=== PATIENT | male | born 1980 | race Caucasian/White ===

== ENCOUNTER 2017-01-09 13:15 | Inpatient (IN) | payer BC ==
[2017-01-09] VITALS (9 sets, daily range): BP systolic 114–131; BP diastolic 59–85; PULSE 61–99; TEMP 97.8–98.5
[~2017-01-09] VITALS: Ht 180.3 cm; Wt 93.3 kg
[2017-01-09] MEDS ORDERED: PAXIL 20MG20 MG PO (13:19)
[2017-01-09] MEDS ORDERED: KLONOPIN 0.5MG0.5 MG PO (13:19)
[2017-01-09] MEDS ORDERED: AMBIEN 10MG10 MG PO (13:19)
[2017-01-09] MEDS ORDERED: LEVAQUIN 5500 MG/TA1 PO (13:19)
[2017-01-09] MEDS ORDERED: BACTRIM DS 8001 TAB PO (13:20)
[2017-01-09 14:33] LABS: BASO # 0.1 (0.0-0.2); BASO % 0.6 % (0.0-2.0); EOS # 0.2 (0.0-0.7); EOS % 1.3 % (0-4.0); GRAN # 11.9 (1.4-6.5); GRAN % 79.9 % (42.2-75.2); HEMATOCRIT 42.7 % (42.0-52.0); HEMOGLOBIN 14.5 g/dl (13.5-18.0); LYMPH # 1.5 (1.2-3.4); MEAN CELL VOLUME 90 fl (80.0-100.0); MEAN CORPUSCULAR HEMOGLOBIN 30 pg (27.0-31.0); MEAN CORPUSCULAR HGB CONC 34 g/dl (33.0-37.0); MEAN PLATELET VOLUME 9.4 fl (7.4-10.4); MONO # 1.1 (0.1-0.6); MONO % 7.6 % (1.7-9.3); PLATELET COUNT 272 K/mm3 (130-400); RED BLOOD COUNT 4.77 M/mm3 (4.20-5.60); REDCELL DISTRIBUTION WIDTH-CV 11.7 % (11.5-14.5)
[2017-01-09 14:43] LABS: ADJUSTED CALCIUM 8.7 mg/dL (8.4-10.2); BILIRUBIN,TOTAL 0.8 mg/dL (0.0-1.0); C-REACTIVE PROTEIN 6.9 mg/dL (0.0-0.9); CALCIUM 8.7 mg/dL (8.4-10.2); CREATININE, serum 0.95 mg/dL (0.66-1.25); POTASSIUM 4.4 mmol/L (3.4-5.0)
[2017-01-09 16:13] LABS: ERYTHROCYTE SEDIMENTATION RATE 19 mm/hr (0-15)
[2017-01-09] MEDS ORDERED: NORCO 325 MG-51 TAB PO (16:42)
[2017-01-10 05:31] VITALS: BP 122/64; PULSE 61; TEMP 97.6
[2017-01-10 10:32] VITALS: BP 118/57; PULSE 56; TEMP 98
[2017-01-10 22:05] VITALS: BP 118/60; PULSE 81; TEMP 97.9
[2017-01-11 06:05] VITALS: BP 128/73; PULSE 58; TEMP 97.7
[2017-01-11 10:39] VITALS: BP 121/68; PULSE 62; TEMP 97.8
[2017-01-11 11:00] LABS: BASO # 0.1 (0.0-0.2); BASO % 0.7 % (0.0-2.0); EOS # 0.2 (0.0-0.7); EOS % 1.6 % (0-4.0); GRAN # 7.8 (1.4-6.5); LYMPH # 2.1 (1.2-3.4); MEAN CELL VOLUME 94 fl (80.0-100.0); MEAN CORPUSCULAR HGB CONC 32 g/dl (33.0-37.0); MEAN PLATELET VOLUME 9.4 fl (7.4-10.4); MONO # 0.7 (0.1-0.6); MONO % 6.1 % (1.7-9.3); PLATELET COUNT 280 K/mm3 (130-400); RED BLOOD COUNT 3.85 M/mm3 (4.20-5.60); REDCELL DISTRIBUTION WIDTH-CV 11.9 % (11.5-14.5); WHITE BLOOD COUNT 10.9 K/mm3 (4.8-10.8)
[2017-01-11 11:15] LABS: HEMOGLOBIN 11.5 g/dl (13.5-18.0); MEAN CORPUSCULAR HEMOGLOBIN 30 pg (27.0-31.0)
[2017-01-11 11:16] LABS: HEMATOCRIT 36.3 % (42.0-52.0)
[2017-01-11 11:36] LABS: ADJUSTED CALCIUM 9.2 mg/dL (8.4-10.2); ALBUMIN 2.8 gm/dL (3.5-5.0); BILIRUBIN,TOTAL 0.3 mg/dL (0.0-1.0); CALCIUM 8.2 mg/dL (8.4-10.2); CREATININE, serum 0.85 mg/dL (0.66-1.25); POTASSIUM 4.1 mmol/L (3.4-5.0); TOTAL PROTEIN 5.5 gm/dL (6.4-8.2)
[2017-01-11 14:51] VITALS: BP 123/76; PULSE 78; TEMP 98
[2017-01-11 18:00] VITALS: BP 129/64; PULSE 63; TEMP 98.4
[2017-01-11 22:00] VITALS: BP 116/69; PULSE 56; TEMP 97.9
[2017-01-12 04:41] VITALS: BP 124/77; PULSE 70; TEMP 98
[2017-01-12 10:08] VITALS: BP 136/78; PULSE 69
[2017-01-12] MEDS ORDERED: DOXYCYCLINE HY100 MG PO (12:22)
[2017-01-12] MEDS ORDERED: NORCO 325 MG-51 TAB PO (14:22)
== END 2017-01-12 14:40 | disposition home or self-care (01) | DRG 501 ==
LOC: COL.ER 13:15 → SURG 14:57
PROVIDERS: Emergency Medicine; Internal Medicine; Orthopaedic Surgery
PROC: 0MBN0ZZ Excision of Right Knee Bursa and Ligament, Open Approach (ICD-10-PCS; principal; 2017-01-09 18:00)
DX: M70.41 Prepatellar bursitis, right knee (principal); L03.115 Cellulitis of right lower limb; F41.9 Anxiety disorder, unspecified; B95.62 Methicillin resistant Staphylococcus aureus infection as the cause of diseases classified elsewhere; Z72.89 Other problems related to lifestyle
CPT/HCPCS: 99222-AI; 99232-AI; 99239; A9284; J0171; J0690; J1100; J1885; J2270; J2405; J2543; J2704; J3010; J3370; J7030; J7042; J7050; J7120